=== PATIENT | female | born 1960 | race Caucasian/White ===

== ENCOUNTER 2019-01-22 20:37 | Observation (INO) | payer MEDICAID ==
[~2019-01-22] VITALS: Ht 147.3 cm; Wt 88.2 kg
[2019-01-22 21:04] VITALS: Ht 147.3 cm; Wt 88.2 kg
[2019-01-22] MEDS ORDERED: NITROGLYCERIN 2% 1 GM OINT PKT TD STA (21:41)
[2019-01-22] MEDS ORDERED: ASPIRIN 81 MG TAB PO STA (21:41)
[2019-01-22] MEDS ORDERED: NITROGLYCERIN (SL) 0.4 MG TAB SL PRN (22:00)
--- NOTE | 2019-01-22 23:28 | ERD ---
ER Documentation Chief Complaint Chief Complaint C/O LT SIDED CP W/ LT ARM NUMBNESS SINCE YESTERDAY HPI Patient is a 58-year-old female with no medical problems who presents with chest pain. She has had pain for the past 2 weeks. Today the pain was worse. It is left-sided. It comes and goes. It lasts about 1 hour at a time. The patient has had no treatment as of yet. Upon review of old medical records this is the patient's first visit to the emergency department. She does not currently have a primary doctor. ROS All systems reviewed and are negative except as per history of present illness. Medications Home Meds No Active Prescriptions or Reported Meds Allergies Allergies: Coded Allergies: No Known Allergy (Unverified , 01/22/19) PMhx/Soc Medical and Surgical Hx: pt denies Medical Hx, pt denies Surgical Hx History of Surgery: No Anesthesia Reaction: No Hx Neurological Disorder: No Hx Respiratory Disorders: No Hx Cardiac Disorders: No Hx Psychiatric Problems: No Hx Miscellaneous Medical Probl: No Hx Alcohol Use: No Hx Substance Use: No Hx Tobacco Use: No Smoking Status: Never smoker FmHx Family History: No coronary disease Physical Exam Vitals Vital Signs Date Temp Pulse Resp B/P (MAP) Pulse Ox O2 O2 Flow FiO2 Time Delivery Rate 01/22/19 90 17 140/77 99 Room Air 21:40 (98) 01/22/19 98.7 88 19 147/68 100 21:04 (94) Physical Exam Const: No acute distress Head: Atraumatic Eyes: Normal Conjunctiva ENT: Normal External Ears, Nose and Mouth. Neck: Full range of motion. No meningismus. Resp: Clear to auscultation bilaterally Cardio: Regular rate and rhythm, no murmurs Abd: Soft, non tender, non distended. Normal bowel sounds Skin: No petechiae or rashes Back: No midline or flank tenderness Ext: No cyanosis, or edema Neur: Awake and alert Psych: Normal Mood and Affect Result Diagram: 01/22/19215001/22/192150 Results 24 hrs Laboratory Tests Test 01/22/19 21:51 White Blood Count 8.7 10^3/ul Red Blood Count 5.36 10^6/ul Hemoglobin 14.8 g/dl Hematocrit 46.2 % Mean Corpuscular Volume 86.2 fl Mean Corpuscular Hemoglobin 27.6 pg Mean Corpuscular Hemoglobin Concent 32.0 g/dl Red Cell Distribution Width 13.4 % Platelet Count 204 10^3/UL Mean Platelet Volume 11.6 fl Immature Granulocytes % 0.300 % Neutrophils % 55.4 % Lymphocytes % 37.9 % Monocytes % 5.7 % Eosinophils % 0.1 % Basophils % 0.6 % Nucleated Red Blood Cells % 0.0 /100WBC Immature Granulocytes # 0.030 10^3/ul Neutrophils # 4.8 10^3/ul Lymphocytes # 3.3 10^3/ul Monocytes # 0.5 10^3/ul Eosinophils # 0.0 10^3/ul Basophils # 0.1 10^3/ul Nucleated Red Blood Cells # 0.0 10^3/ul Sodium Level 142 mmol/L Potassium Level 4.1 mmol/L Chloride Level 104 mmol/L Carbon Dioxide Level 28 mmol/L Anion Gap 10 Blood Urea Nitrogen 14 mg/dl Creatinine 0.53 mg/dl Est Glomerular Filtrat Rate mL/min > 60 mL/min Glucose Level 136 mg/dl Calcium Level 10.3 mg/dl Troponin I < 0.012 ng/ml Current Medications Medications Dose Sig/Juan David Start Time Status Last (Trade) Ordered Route PRN Stop Time Admin Dose Reason Admin Aspirin 162 mg ONCE STAT 01/22/19 DC 01/22/19 (Aspirin) PO 21:41 21:56 01/22/19 21:42 1 inch ONCE STAT 01/22/19 DC 01/22/19 Nitroglycerin TD 21:41 21:56 01/22/19 21:42 (Nitroglyceri n 2% Oint) 1 tab Q5M UP TO 3 01/22/19 01/22/19 Nitroglycerin DOSES PRN 22:00 21:56 SL .CHEST (Nitroglyceri PAIN n (Sl Tab) 0.4 Mg) Ondansetron 4 mg ER BRIDGE 01/22/19 HCl (Zofran PRN IV 23:30 Inj) NAUSEA/VOMITI 01/23/19 23:29 NG 650 mg ER BRIDGE 01/22/19 Acetaminophen PRN PO 23:30 (Tylenol .MILD PAIN 01/23/19 23:29 Tab) 1-3 OR TEMP Procedures/MDM EKG #1 read by me: Rate/Rhythm: Regular rate and rhythm at a normal rate Intervals: Normal Impression: No evidence of ischemia or arrhythmia EKG #2 read by me: Rate/Rhythm: Regular rate and rhythm at a normal rate Intervals: Normal Impression: No evidence of ischemia or arrhythmia Chest X-ray 1V Interpreted by me: Soft Tissue: No acute abnormalities Bones: No acute abnormalities Mediastinum/Cardiac Silhouette/Lungs: No acute abnormalities Patient is a 58-year-old female who presents with chest pain. I am concerned for potential acute coronary syndrome. I doubt pneumonia, pneumothorax, pulmonary embolism, or aortic dissection. The patient will be admitted to the care of Dr. Ariza to the panel team and the patient was given aspirin and nitroglycerin. She will be admitted to a telemetry bed. Initial troponin is negative. Departure Diagnosis: Primary Impression: Chest pain Chest pain type: unspecified Qualified Codes: R07.9 - Chest pain, unspecified Condition: DEN Angulo MD Jan 22, 2019 23:28
[2019-01-22] MEDS ORDERED: ONDANSETRON 4 MG INJ IV PRN (23:30)
[2019-01-22] MEDS ORDERED: ACETAMINOPHEN 325 MG TAB PO PRN (23:30)
[2019-01-23] VITALS (13 sets, daily range): BP systolic 108–129; BP diastolic 59–74; PULSE 56–88; RESP 16–22
[2019-01-23] MEDS ORDERED: ACETAMINOPHEN 325 MG TAB PO PRN (00:30)
[2019-01-23] MEDS ORDERED: DOCUSATE SODIUM 100 MG CAP PO PRN (00:30)
[2019-01-23] MEDS ORDERED: BISACODYL (EC) 5 MG TAB PO PRN (00:30)
[2019-01-23] MEDS ORDERED: NACL 0.9% 3 ML SYG IV SCH (00:30)
[2019-01-23] MEDS ORDERED: morphine 2 MG INJ IV PRN (00:30)
[2019-01-23] MEDS ORDERED: ONDANSETRON 4 MG INJ IV PRN (00:30)
[2019-01-23] MEDS ORDERED: NITROGLYCERIN (SL) 0.4 MG TAB SL PRN (00:30)
--- NOTE | 2019-01-23 04:34 | HP ---
Date/Time of Note Date/Time of Note DATE: 01/23/19 TIME: 04:30 Assessment/Plan VTE Prophylaxis SCD applied (from Nsg): Yes Pharmacological prophylaxis: NA/contraindicated Pharm contraindication: low risk/ambulating Lines/Catheters IV Catheter Type (from Nrsg): Saline Lock Urinary Cath still in place: No Assessment/Plan Hospital Course This is a 58-year-old female being admitted to the telemetry floor for observation for: #1 chest pain: Rule out ACS versus anginal equivalent: Patient does report symptoms for the last 2 weeks that occur at rest and on exertion. She does have a history of hyperlipidemia and morbid obesity. Will trend cardiac enzymes x3, the first that was negative. Will consult cardiology Dr. Dejesus for possible stress test. PRN nitro/morphine, will check hemoglobin A 1C, lipid panel, TSH #2 morbid obesity: We will check hemoglobin A 1C, lipid panel, TSH, encourage diet and lifestyle modification #3 hyperlipidemia: We will check lipid panel #4 DVT GI prophylaxis: SCDs, no GI prophylaxis indicated Further treatment strategy will be implemented as per the clinical course Result Diagram: 01/23/19 0347 01/22/19 2151 Results 24hrs Laboratory Tests Test 01/22/19 21:51 01/22/19 23:45 01/23/19 03:47 White Blood Count 8.7 7.8 Red Blood Count 5.36 4.73 Hemoglobin 14.8 13.2 Hematocrit 46.2 40.8 Mean Corpuscular Volume 86.2 86.3 Mean Corpuscular Hemoglobin 27.6 L 27.9 L Mean Corpuscular Hemoglobin Concent 32.0 32.4 Red Cell Distribution Width 13.4 13.3 Platelet Count 204 182 Mean Platelet Volume 11.6 H 12.2 H Immature Granulocytes % 0.300 0.100 Neutrophils % 55.4 55.1 Lymphocytes % 37.9 37.7 Monocytes % 5.7 6.2 Eosinophils % 0.1 0.3 Basophils % 0.6 0.6 Nucleated Red Blood Cells % 0.0 0.0 Immature Granulocytes # 0.030 0.010 Neutrophils # 4.8 4.3 Lymphocytes # 3.3 H 2.9 Monocytes # 0.5 0.5 Eosinophils # 0.0 0.0 Basophils # 0.1 0.1 Nucleated Red Blood Cells # 0.0 0.0 Sodium Level 142 Potassium Level 4.1 Chloride Level 104 Carbon Dioxide Level 28 Anion Gap 10 Blood Urea Nitrogen 14 Creatinine 0.53 Est Glomerular Filtrat Rate mL/min > 60 Glucose Level 136 Calcium Level 10.3 H Troponin I < 0.012 Pending Lactic Acid Level 0.9 Hemoglobin A1c 5.6 Creatine Kinase 64 Creatine Kinase Index Pending Creatinine Kinase MB (Mass) Pending HPI/ROS Admit Date/Time Admit Date/Time Jan 22, 2019 at 23:23 Hx of Present Illness Chief complaint: Chest pain Patient is a 58-year-old female with no medical problems who presents with chest pain. She has had pain for the past 2 weeks that has been intermittent. Today the pain was worse. It is left-sided. It comes and goes. It lasts about 1 hour at a time. She reports that with the pain she is also complains of nausea. She states that the pain over the last 2 weeks has occurred while at rest and with walking and has shortness of breath with it.She denies any lower extremity swelling or diaphoresis. Allergies: NKDA Medications: None ROS Const: As per HPI Eyes : No pain discharge or redness or change in visual acuity ENT: No pain, sore throat, congestion, congestion, dysphagia or discharge Respiratory: No shortness of breath, cough, sputum, wheezing, or pleuritic pain Cardiovascular: As per HPI GI : no change in appetite, abdominal pain, nausea, vomiting, diarrhea, constipation, or change in the color his stool Genitourinary: No dysuria, hematuria, flank pain , discharge or CVA tenderness Musculoskeletal: No joint pain, back pain, neck pain, restricted range of motion in neck or joints Skin: No rash, bruising or hives Neuro: No headache, dizziness, syncope, seizure, focal weakness Endocrine: No polyuria, polydipsia, temperature intolerance Psych: No hallucination, depression, anxiety or suicidal ideation PMH/Family/Social Past Medical History Hyperlipidemia Medications Current Medications Nitroglycerin (Nitroglycerin (Sl Tab) 0.4 Mg) 1 tab Q5M UP TO 3 DOSES PRN SL .CHEST PAIN Last administered on 01/22/19at 21:56; Admin Dose 1 TAB; Start 01/22/19 at 22:00 Ondansetron HCl (Zofran Inj) 4 mg ER BRIDGE PRN IV NAUSEA/VOMITING; Start 01/22/19 at 23:30; Stop 01/23/19 at 23:29 Acetaminophen (Tylenol Tab) 650 mg ER BRIDGE PRN PO .MILD PAIN 1-3 OR TEMP; Start 01/22/19 at 23:30; Stop 01/23/19 at 23:29 IV Flush (NS 3 ml) 3 ml PER PROTOCOL IV ; Start 01/23/19 at 00:30 Ondansetron HCl (Zofran Inj) 4 mg Q6H PRN IV NAUSEA/VOMITING; Start 01/23/19 at 00:30 Aspirin (Aspirin) 81 mg DAILY PO ; Start 01/23/19 at 09:00 Nitroglycerin (Nitroglycerin (Sl Tab) 0.4 Mg) 1 tab Q5M PRN SL .CHEST PAIN; Start 01/23/19 at 00:30 Acetaminophen (Tylenol Tab) 650 mg Q6H PRN PO .PAIN 1-3 OR TEMP Last administered on 01/23/19at 04:09; Admin Dose 650 MG; Start 01/23/19 at 00:30 Morphine Sulfate (morphine) 2 mg Q4H PRN IV .PAIN 7-10; Start 01/23/19 at 00:30 Docusate Sodium (Colace) 100 mg Q12H PRN PO .CONSTIPATION; Start 01/23/19 at 00:30 Bisacodyl (Dulcolax) 5 mg DAILY PRN PO .CONSTIPATION; Start 01/23/19 at 00:30 Coded Allergies: No Known Allergy (Unverified , 01/22/19) Past Surgical History x1 Family History Significant Family History: no pertinent family hx Social History Alcohol Use: none Smoking Status: Former smoker Drug Use: none Exam/Review of Systems Vital Signs Vitals Vital Signs Date Temp Pulse Resp B/P (MAP) Pulse Ox O2 O2 Flow FiO2 Time Delivery Rate 01/23/19 88 04:00 01/23/19 98.4 16 116/61 96 Room Air 03:49 (79) Exam Exam General: Patient is a pleasant female currently lying in bed in no acute distress. HEENT: Atraumatic, normocephalic. The pupils are equal, round and reactive. Extraocular motor are intact Neck: Supple with full range of motion. No rigidity or meningismus Chest: Nontender Lungs: Clear to auscultation bilaterally no crackles rales or wheezing Heart: Normal S1-S2, Regular rhythm and rate. Abdomen: Morbidly obese, soft , nontender, nondistended , bowel sounds are present. No guarding no rebound tenderness , No masses or organomegaly. No costovertebral temporal angle mass Extremities: Normal to inspection, no edema no cyanosis Neurologic: Normal mental status, speech normal, cranial nerves II through XII are intact, motor and sensory are intact, no focal weakness Additional Comments EKG Rate/Rhythm: Regular rate and rhythm at a normal rate Intervals: Normal Impression: No evidence of ischemia or arrhythmia PROCEDURE: DX Chest 1 View CLINICAL INDICATION: Chest pain. TECHNIQUE: AP Portable chest. COMPARISON: None FINDINGS: Normal cardiac and mediastinal configuration. Aortic calcified plaque absent. No CHF or hilar enlargement. Lungs are clear. IMPRESSION: No acute disease. RPTAT: HLRS Physician Amish Date Time Electronically viewed and signed by Physician Amish on 01/23/2019 00:32 RS/ CC: DEN DURAND MD [id number] ARNOLDO FARNSWORTH Jan 23, 2019 04:34
[2019-01-23] MEDS: ASPIRIN 81 MG TAB PO SCH (08:10)
--- NOTE | 2019-01-23 10:28 | PN ---
Date/Time of Note Date/Time of Note DATE: 01/23/19 TIME: 10:28 Assessment/Plan VTE Prophylaxis SCD applied (from Nsg): Yes Pharmacological prophylaxis: NA/contraindicated Pharm contraindication: low risk/ambulating Lines/Catheters IV Catheter Type (from Nrsg): Saline Lock Urinary Cath still in place: No Assessment/Plan Hospital Course SUBJECTIVE: OBJECTIVE: Vital signs-see below PHYSICAL EXAM: Constitutional: Obese female, not in acute distress. Psych: nl mood/affect, no complaints Head: atraumatic, normocephalic Eyes: nl conjunctiva, nl sclera ENMT: mucosa pink and moist, nl external ears & nose Neck: non-tender, supple Respiratory: clear to auscultation, normal air movement Cardiovascular: nl pulses, regular rate and rhythm Gastrointestinal: non-tender, soft, bowel sounds active in all 4 quadrants. Musculoskeletal/extremities: nl extremities to inspection, motor strength equal bilaterally, no focal deficit. Normal pulses,no cyanosis, no edema. Neurological: Alert oriented 3,nl speech, nl strength Skin: nl turgor ASSESSMENT/PLAN: 58-year-old obese female with no significant past medical history, admitted with exertional chest pain. 1. Exertional chest pain, rule out ACS -Troponin x2 sets, EKG negative for acute cardiac ischemia. However, patient symptoms are concerning as such she would benefit from inpatient cardiology consult and most likely a stress test. -Continue aspirin 2. Dyslipidemia -We will start patient on statin. 3. Obesity with BMI 40.6 -Weight reduction advised. DVT prophylaxis: SCDs/ambulation PUD prophylaxis: Not indicated CODE STATUS: Full code Diet: N.p.o. for possible stress test. Disposition: Continue current management. Follow-up cardiology recommendations. Patient was seen in collaboration with Dr. Reddy Result Diagram: 01/23/1934601/23/19346 Results 24hrs Laboratory Tests Test 01/22/19 21:51 01/22/19 23:45 01/23/19 03:47 White Blood Count 8.7 7.8 Red Blood Count 5.36 4.73 Hemoglobin 14.8 13.2 Hematocrit 46.2 40.8 Mean Corpuscular Volume 86.2 86.3 Mean Corpuscular Hemoglobin 27.6 L 27.9 L Mean Corpuscular Hemoglobin Concent 32.0 32.4 Red Cell Distribution Width 13.4 13.3 Platelet Count 204 182 Mean Platelet Volume 11.6 H 12.2 H Immature Granulocytes % 0.300 0.100 Neutrophils % 55.4 55.1 Lymphocytes % 37.9 37.7 Monocytes % 5.7 6.2 Eosinophils % 0.1 0.3 Basophils % 0.6 0.6 Nucleated Red Blood Cells % 0.0 0.0 Immature Granulocytes # 0.030 0.010 Neutrophils # 4.8 4.3 Lymphocytes # 3.3 H 2.9 Monocytes # 0.5 0.5 Eosinophils # 0.0 0.0 Basophils # 0.1 0.1 Nucleated Red Blood Cells # 0.0 0.0 Sodium Level 142 144 Potassium Level 4.1 3.9 Chloride Level 104 104 Carbon Dioxide Level 28 27 Anion Gap 10 13 Blood Urea Nitrogen 14 14 Creatinine 0.53 0.49 Est Glomerular Filtrat Rate mL/min > 60 > 60 Glucose Level 136 128 Calcium Level 10.3 H 9.7 Troponin I < 0.012 < 0.012 Lactic Acid Level 0.9 Hemoglobin A1c 5.6 Magnesium Level 2.5 Total Bilirubin 0.3 Direct Bilirubin 0.00 Indirect Bilirubin 0.3 Aspartate Amino Transf (AST/SGOT) 27 Alanine Aminotransferase (ALT/SGPT) 23 Alkaline Phosphatase 87 Creatine Kinase 64 Creatine Kinase Index 0.3 Creatinine Kinase MB (Mass) < 0.22 Total Protein 7.0 Albumin 4.1 Globulin 2.90 Albumin/Globulin Ratio 1.41 Triglycerides Level 108 Cholesterol Level 216 H LDL Cholesterol, Calculated 147 HDL Cholesterol 47 Cholesterol/HDL Ratio 4.5 Thyroid Stimulating Hormone (TSH) 2.650 Exam/Review of Systems Exam Vitals Vital Signs Date Temp Pulse Resp B/P (MAP) Pulse Ox O2 O2 Flow FiO2 Time Delivery Rate 01/23/19 78 08:07 01/23/19 97.6 22 108/59 96 Nasal 07:16 (75) Cannula Intake and Output 01/22/19 01/22/19 01/23/19 1515:00 23:00 07:00 IntakeIntake Total 500 ml BalanceBalance 500 ml Results Results 24hrs Laboratory Tests Test 01/22/19 21:51 01/22/19 23:45 01/23/19 03:47 White Blood Count 8.7 7.8 Red Blood Count 5.36 4.73 Hemoglobin 14.8 13.2 Hematocrit 46.2 40.8 Mean Corpuscular Volume 86.2 86.3 Mean Corpuscular Hemoglobin 27.6 L 27.9 L Mean Corpuscular Hemoglobin Concent 32.0 32.4 Red Cell Distribution Width 13.4 13.3 Platelet Count 204 182 Mean Platelet Volume 11.6 H 12.2 H Immature Granulocytes % 0.300 0.100 Neutrophils % 55.4 55.1 Lymphocytes % 37.9 37.7 Monocytes % 5.7 6.2 Eosinophils % 0.1 0.3 Basophils % 0.6 0.6 Nucleated Red Blood Cells % 0.0 0.0 Immature Granulocytes # 0.030 0.010 Neutrophils # 4.8 4.3 Lymphocytes # 3.3 H 2.9 Monocytes # 0.5 0.5 Eosinophils # 0.0 0.0 Basophils # 0.1 0.1 Nucleated Red Blood Cells # 0.0 0.0 Sodium Level 142 144 Potassium Level 4.1 3.9 Chloride Level 104 104 Carbon Dioxide Level 28 27 Anion Gap 10 13 Blood Urea Nitrogen 14 14 Creatinine 0.53 0.49 Est Glomerular Filtrat Rate mL/min > 60 > 60 Glucose Level 136 128 Calcium Level 10.3 H 9.7 Troponin I < 0.012 < 0.012 Lactic Acid Level 0.9 Hemoglobin A1c 5.6 Magnesium Level 2.5 Total Bilirubin 0.3 Direct Bilirubin 0.00 Indirect Bilirubin 0.3 Aspartate Amino Transf (AST/SGOT) 27 Alanine Aminotransferase (ALT/SGPT) 23 Alkaline Phosphatase 87 Creatine Kinase 64 Creatine Kinase Index 0.3 Creatinine Kinase MB (Mass) < 0.22 Total Protein 7.0 Albumin 4.1 Globulin 2.90 Albumin/Globulin Ratio 1.41 Triglycerides Level 108 Cholesterol Level 216 H LDL Cholesterol, Calculated 147 HDL Cholesterol 47 Cholesterol/HDL Ratio 4.5 Thyroid Stimulating Hormone (TSH) 2.650 Medications Medication Current Medications Nitroglycerin (Nitroglycerin (Sl Tab) 0.4 Mg) 1 tab Q5M UP TO 3 DOSES PRN SL .CHEST PAIN Last administered on 01/22/19at 21:56; Admin Dose 1 TAB; Start 01/22/19 at 22:00 Ondansetron HCl (Zofran Inj) 4 mg ER BRIDGE PRN IV NAUSEA/VOMITING; Start 01/22/19 at 23:30; Stop 01/23/19 at 23:29 Acetaminophen (Tylenol Tab) 650 mg ER BRIDGE PRN PO .MILD PAIN 1-3 OR TEMP; Start 01/22/19 at 23:30; Stop 01/23/19 at 23:29 IV Flush (NS 3 ml) 3 ml PER PROTOCOL IV ; Start 01/23/19 at 00:30 Ondansetron HCl (Zofran Inj) 4 mg Q6H PRN IV NAUSEA/VOMITING; Start 01/23/19 at 00:30 Aspirin (Aspirin) 81 mg DAILY PO Last administered on 01/23/19at 08:10; Admin Dose 81 MG; Start 01/23/19 at 09:00 Nitroglycerin (Nitroglycerin (Sl Tab) 0.4 Mg) 1 tab Q5M PRN SL .CHEST PAIN; Start 01/23/19 at 00:30 Acetaminophen (Tylenol Tab) 650 mg Q6H PRN PO .PAIN 1-3 OR TEMP Last administered on 01/23/19at 04:09; Admin Dose 650 MG; Start 01/23/19 at 00:30 Morphine Sulfate (morphine) 2 mg Q4H PRN IV .PAIN 7-10; Start 01/23/19 at 00:30 Docusate Sodium (Colace) 100 mg Q12H PRN PO .CONSTIPATION; Start 01/23/19 at 00:30 Bisacodyl (Dulcolax) 5 mg DAILY PRN PO .CONSTIPATION; Start 01/23/19 at 00:30 Atorvastatin Calcium (Lipitor) 10 mg HS PO ; Start 01/23/19 at 21:00 LUIS HOLLOWAY NP Jan 23, 2019 10:28
--- NOTE | 2019-01-23 17:08 | RADRPT ---
Echocardiogram Report Patient Name: Bari LI ID: [id number] : 1960 (58y 2m)Study Date: 01/23/2019 8:10:50 AM Gender: FAccession #: [id number] Tech: Patricia Dailey CIERA Location: [facility] Ref.Physician: ARNOLDO FARNSWORTH Height(Cm): BSA: Weight(Kg): Quality: AdequateAccount #: Procedures: Echocardiographic Report: Transthoracic echocardiogram with complete 2D, M-Mode, and doppler examination. Indications: Chest Pain. Measurements: 2D/M Mode Doppler Measurement Value Normal Range Measurement Value Normal Range LVIDd 2D 5.0 [ 3.8 - 5.2 ] cm AV Peak Wade 1.3 [ 100.0 - 170.0 ] cm/sec LVIDs 2D 2.4 [ 2.2 - 3.5 ] cm AV Peak PG 6.0 [ 2.0 - 9.0 ] mmHg LVPWd 2D 1.1 [ 0.6 - 0.9 ] cm LVOT Peak Wade 0.9 [ 70.0 - 110.0 ] cm/sec IVSd 2D 0.9 [ 0.6 - 0.9 ] cm LVOT Peak PG 3.0 [ 2.0 - 6.0 ] mmHg AoR Diam 2D 2.4 [ 2.3 - 3.1 ] cm MV E Peak Wade 0.6 [ 60.0 - 130.0 ] cm/sec EDV 2D 120.0 [ 46.0 - 106.0 ] ml MV A Peak Wade 0.7 [ 100.0 - 120.0 ] cm/sec ESV 2D 20.0 [ 14.0 - 42.0 ] ml MV E/A 0.8 [ 0.8 - 1.5 ] ratio EF 2D 83.3 [ 54.0 - 74.0 ] percent MV Decel Time 165 [ 104 - 258 ] msec LA Dimen 2D 3.6 [ 2.7 - 3.8 ] cm Lat E` Wade 0.1 [ 10.0 - 15.0 ] cm/sec Lateral E/E` 6.4 [ 1.0 - 2.0 ] ratio Med E` Wade 0.1 cm/sec MV E/A 0.8 [ 0.8 - 1.5 ] ratio TR Peak Wade 2.7 [ 100.0 - 280.0 ] cm/sec TR Peak PG 28.0 mmHg RVSP 31.0 [ 10.0 - 36.0 ] mmHg RA Pressure 3.0 mmHg Findings: Left Ventricle: Normal left ventricular systolic function. Normal left ventricular cavity size. Mild concentric left ventricular hypertrophy. Ejection fraction is visually estimated at 60 %. Tissue Doppler/Mitral Doppler indices are consistent with impaired relaxation (Stage I diastolic dysfunction). Right Ventricle: Normal right ventricular size. Normal right ventricular systolic function. Left Atrium: The left atrium is normal in size. Right Atrium: The right atrium is normal in size. Mitral Valve: Normal appearance and function of the mitral valve with trace physiologic regurgitation. Aortic Valve: Normal appearance of the aortic valve. No significant aortic stenosis or insufficiency. Tricuspid Valve: Normal appearance of the tricuspid valve. Estimated peak PA systolic pressure 31 mmHg. There is trace tricuspid regurgitation. Pulmonic Valve: Normal pulmonic valve appearance. Pericardium: Normal pericardium with no significant pericardial effusion. Aorta: Normal aortic root. IVC: Normal size and normal respiratory collapse consistent with normal right atrial pressure. Conclusions: Normal left ventricular systolic function. Normal left ventricular cavity size. Mild concentric left ventricular hypertrophy. Ejection fraction is visually estimated at 60 %. Tissue Doppler/Mitral Doppler indices are consistent with impaired relaxation (Stage I diastolic dysfunction). Normal appearance and function of the mitral valve with trace physiologic regurgitation. Normal appearance of the tricuspid valve. Estimated peak PA systolic pressure 31 mmHg. There is trace tricuspid regurgitation. Normal pulmonic valve appearance. Electronically Signed By: Raul Dejesus 2019-01-23 17:06:57 PDT
--- NOTE | 2019-01-23 18:22 | CONS ---
DATE OF ADMISSION: 01/22/2019 DATE OF CONSULTATION: 01/22/2019 TYPE OF CONSULTATION: Cardiology. REASON FOR CONSULTATION: Chest pain, assess for acute coronary syndrome. REQUESTING PHYSICIAN: Sara Holloway NP, from the hospitalist service. HISTORY OF PRESENT ILLNESS: Ms. Wily Howard is a 58-year-old female with history of dyslipidemia, obesity, who presents with complaints of substernal chest pain. The patient states the chest pain was ongoing for approximately 2 weeks and describes it as a stabbing sensation on the left side of her chest without radiation, occurring both at rest and with exertion. Initially upon arrival, temperature of 98.7, blood pressure 147/68, pulse 88, respiratory rate 19, satting 100%. The patient's labs revealed sodium of 142, potassium 4.1, creatinine 0.5, BUN 14. Troponin negative. White blood cell count of 8.7, hemoglobin 14.8, platelet count of 204. The patient underwent a chest x-ray revealing no acute cardiopulmonary. The patient's electrocardiogram reveals normal sinus rhythm, rate of 82, normal axis, normal intervals with anterior T- wave inversion and borderline anteroseptal Q's. The patient was subsequently admitted to the floor and since admit to floor has had negative troponin x3, ruling out acute myocardial infarction. PAST MEDICAL HISTORY: As above in HPI. MEDICATIONS CURRENTLY IN HOSPITAL: 1. Lipitor 20 mg at bedtime. 2. Aspirin 81 mg daily. 3. Sublingual nitroglycerin. 4. Tylenol. 5. Morphine p.r.n. 6. Colace p.r.n. 7. Zofran p.r.n. ALLERGIES: NO KNOWN DRUG ALLERGIES. SOCIAL HISTORY: No current tobacco, EtOH, illicit drugs use. FAMILY HISTORY: No history of sudden cardiac or early CAD. REVIEW OF SYSTEMS: As above in HPI. CONSTITUTIONAL: No fevers, chills. PULMONARY: No current shortness of breath. CARDIOVASCULAR: No current chest pain, but chest pain on admit. GASTROINTESTINAL: No vomiting. GENITOURINARY: No hematuria. MUSCULOSKELETAL: Degenerative joint disease. PSYCHIATRIC: No documented psych history. NEUROLOGIC: No documented history of CVA. ENDOCRINE: No documented diabetes mellitus. PHYSICAL EXAMINATION: VITAL SIGNS: Temperature of 97.8, blood pressure 117/66, pulse 79, respiratory rate 21, satting 96% on room air. GENERAL: The patient is alert, awake, in no acute distress. NECK: JVP is approximately 8 to 9 cm of water. CHEST: Fair air movement throughout. HEART: Regular rate and rhythm. Normal S1, S2, I/ systolic murmur, nondisplaced PMI. ABDOMEN: Positive bowel sounds, soft. EXTREMITIES: No significant pitting edema, 1+ pulses bilateral posterior tibial. LABORATORY DATA: Most recently from today, sodium 144, potassium 3.9, creatinine of 0.49, BUN 14. White blood cell count 7.8, hemoglobin 13.2, platelet count 182. IMAGING STUDIES: As above in HPI with chest x-ray revealing no acute cardiopulmonary abnormalities. ELECTROCARDIOGRAM: As above in HPI with no repeat EKGs this time. IMPRESSION: 1. Chest pain, assess for acute coronary syndrome with negative troponins x3 and somewhat atypical symptomatology for cardiac etiology. 2. Abnormal electrocardiogram with anterior T-wave inversion and negative troponins x3. 3. Dyslipidemia with significant elevated LDL. RECOMMENDATIONS: 1. At this time, we would maintain the patient on her aspirin. 2. Would increase the patient's statin dose given significant elevated LDL and improve lipid profile. 3. We will give the patient's sublingual nitroglycerin for recurrent episodes of chest pain. 4. We will follow up patient's 2D echo. 5. The patient's 2D echo reveals no significant abnormalities. The patient continued to be chest pain free and I believe patient will be reasonable for discharge with further outpatient followup and evaluation including outpatient stress testing. If the patient continues to have chest pain, we will consider a stress test as inpatient or if in echo, she was found to have some abnormalities. Thank you for allowing me to take part in the care of this patient. Dictated By: ALIZA STEWART/VENITA Conf#: [id number] DID#: [id number] CC: ARNOLDO FARNSWORTH MD; SARA HOLLOWAY NP;*EvelinaCC* MTDD
[2019-01-23] MEDS ORDERED: ATORVASTATIN 10 MG TAB PO SCH (21:00)
[2019-01-24] VITALS: PULSE 81
[2019-01-24 03:48] VITALS: BP 111/62; PULSE 70; RESP 16
[2019-01-24 04:00] VITALS: PULSE 67
[2019-01-24 07:04] VITALS: BP 121/89; PULSE 74; RESP 18
[2019-01-24 08:01] VITALS: PULSE 78
[2019-01-24] MEDS: ASPIRIN 81 MG TAB PO SCH (08:25)
[2019-01-24] MEDS ORDERED: REGADENOSON 0.4 MG/5 ML SYG ONE (11:47)
[2019-01-24 12:01] VITALS: PULSE 85
--- NOTE | 2019-01-24 12:37 | CONS ---
Assessment/Plan Assessment/Plan Hospital Course (Demo Recall) IMPRESSION: 1. Chest pain, assess for acute coronary syndrome with negative troponins x3 and somewhat atypical symptomatology for cardiac etiology.-neg trop x 3 2. Abnormal electrocardiogram with anterior T-wave inversion and negative troponins x3. 3. Dyslipidemia with significant elevated LDL. Recc: -Tele -Contiue asa -Continue statin -PRN SL NTG -Lexiscan stress today and if negative then ok for d/c Consultation Date/Type/Reason Admit Date/Time Jan 22, 2019 at 23:23 Initial Consult Date 01/23/19 Type of Consult Cardiology Reason for Consultation chest pain Requesting Provider: ARNOLDO FARNSWORTH Date/Time of Note DATE: 01/24/19 TIME: 12:35 Exam/Review of Systems Vital Signs Vitals Vital Signs Date Temp Pulse Resp B/P (MAP) Pulse Ox O2 O2 Flow FiO2 Time Delivery Rate 01/24/19 85 12:01 01/24/19 98.4 18 121/89 96 Room Air 07:04 (100) Intake and Output 01/23/19 01/23/19 01/24/19 1515:00 23:00 07:00 IntakeIntake Total 240 ml BalanceBalance 240 ml Exam Exam Review of Systems: CONSTITUTIONAL: No fevers, chills. PULMONARY: No sob CARDIOVASCULAR: No chest pain/palpitations GASTROINTESTINAL: No nausea/vomiting. GENITOURINARY: No hematuria/dysuria. MUSCULOSKELETAL: No myagias/arthalgias. PSYCHIATRIC: The patient denies depression. NEUROLOGIC: No weakness Constitutional: alert Head: normocephalic ENMT: mucosa pink and moist Neck: supple, jvd (9 cm water) Respiratory: diminished breath sounds Cardiovascular: regular rate and rhythm Gastrointestinal: soft Musculoskeletal: muscle tone (normal) Extremities: edema (none) Neurological: other (No focal deficits) Labs Result Diagram: 01/24/19 0659 01/24/19 0659 Results 24hrs Laboratory Tests Test 01/24/19 06:59 White Blood Count 7.2 Red Blood Count 5.04 Hemoglobin 14.0 Hematocrit 43.7 Mean Corpuscular Volume 86.7 Mean Corpuscular Hemoglobin 27.8 L Mean Corpuscular Hemoglobin Concent 32.0 Red Cell Distribution Width 13.7 Platelet Count 192 Mean Platelet Volume 12.3 H Immature Granulocytes % 0.100 Neutrophils % 41.5 Lymphocytes % 49.1 Monocytes % 8.3 Eosinophils % 0.4 Basophils % 0.6 Nucleated Red Blood Cells % 0.0 Immature Granulocytes # 0.010 Neutrophils # 3.0 Lymphocytes # 3.5 H Monocytes # 0.6 Eosinophils # 0.0 Basophils # 0.0 Nucleated Red Blood Cells # 0.0 Sodium Level 144 Potassium Level 4.0 Chloride Level 108 Carbon Dioxide Level 27 Anion Gap 9 Blood Urea Nitrogen 16 Creatinine 0.58 Est Glomerular Filtrat Rate mL/min > 60 Glucose Level 87 # Calcium Level 9.5 Total Bilirubin 0.4 Direct Bilirubin 0.00 Indirect Bilirubin 0.4 Aspartate Amino Transf (AST/SGOT) 33 Alanine Aminotransferase (ALT/SGPT) 21 Alkaline Phosphatase 97 Total Protein 7.6 Albumin 4.3 Globulin 3.30 H Albumin/Globulin Ratio 1.30 Medications Medications Current Medications IV Flush (NS 3 ml) 3 ml PER PROTOCOL IV ; Start 01/23/19 at 00:30 Ondansetron HCl (Zofran Inj) 4 mg Q6H PRN IV NAUSEA/VOMITING; Start 01/23/19 at 00:30 Aspirin (Aspirin) 81 mg DAILY PO Last administered on 01/24/19at 08:25; Admin Dose 81 MG; Start 01/23/19 at 09:00 Nitroglycerin (Nitroglycerin (Sl Tab) 0.4 Mg) 1 tab Q5M PRN SL .CHEST PAIN; Start 01/23/19 at 00:30 Acetaminophen (Tylenol Tab) 650 mg Q6H PRN PO .PAIN 1-3 OR TEMP Last administered on 01/23/19at 04:09; Admin Dose 650 MG; Start 01/23/19 at 00:30 Morphine Sulfate (morphine) 2 mg Q4H PRN IV .PAIN 7-10; Start 01/23/19 at 00:30 Docusate Sodium (Colace) 100 mg Q12H PRN PO .CONSTIPATION; Start 01/23/19 at 00:30 Bisacodyl (Dulcolax) 5 mg DAILY PRN PO .CONSTIPATION; Start 01/23/19 at 00:30 Atorvastatin Calcium (Lipitor) 40 mg HS PO ; Start 01/24/19 at 21:00 ALIZA SAEZ 23, 2019 12:37
--- NOTE | 2019-01-24 14:08 | CARRPT ---
DATE OF PROCEDURE: 01/24/2019 Lexiscan Cardiolite stress test, electrocardiogram portion. INDICATION: Chest pain, assess for ischemia. BASELINE VITAL SIGNS AND ELECTROCARDIOGRAM: Pulse 70, blood pressure 144/78. Electrocardiogram reveals sinus rhythm, rate of 78 with a normal axis and nonspecific ST-T abnormalities. PROCEDURE: The patient underwent standard Lexiscan infusion protocol over 10 seconds followed by radiotracer. The patient's test was stopped at completion of protocol. Maximal blood pressure during the test 175/87. Maximum heart rate during the test 130. ELECTROCARDIOGRAM FINDINGS: No significant ST or T-wave changes from baseline abnormalities. No documented PVCs. SYMPTOMS: The patient had no complaints of chest pain or shortness breath during stress testing. IMPRESSION: 1. The patient did not develop any new ST or T-wave changes from baseline abnormalities during stress testing. 2. No documented premature ventricular contractions. 3. Report of nuclear image to follow in separate dictation. Dictated By: ALIZA STEWART/VENITA Conf#: [id number] DID#: [id number] CC: ARNOLDO FARNSWORTH MD;*End* MTDD
--- NOTE | 2019-01-24 14:17 | PDOCDIS ---
Discharge Instructions DIAGNOSIS Discharge Diagnosis Noncardiac chest pain; obesity; lipidemia; grade 1 diastolic dysfunction CONDITION [id number] Patient Condition: [id number] Good HOME CARE INSTRUCTIONS: Magen Diet Instructions: [id number] Reduced Calorie ACTIVITY: [id number] Activity Restrictions: [id number] No Restrictions FOLLOW UP/APPOINTMENTS Follow-up Plan Follow-up with primary care physician in the next 3 weeks for ongoing management of lipid disturbance NAIDA NAJERA MD Jan 24, 2019 14:17
--- NOTE | 2019-01-24 14:17 | DS ---
Date/Time of Note Date/Time of Note DATE: 01/24/19 TIME: 14:13 Discharge Summary Admission/Discharge Info Admit Date/Time Jan 22, 2019 at 23:23 Discharge Date/Time January 24 2019 Discharge Diagnosis Noncardiac chest pain; obesity; lipidemia; grade 1 diastolic dysfunction Patient Condition: Good Consults Cardiology-Dr. Dejesus Procedures Echocardiogram; Conclusions: Normal left ventricular systolic function. Normal left ventricular cavity size. Mild concentric left ventricular hypertrophy. Ejection fraction is visually estimated at 60 %. Tissue Doppler/Mitral Doppler indices are consistent with impaired relaxation (Stage I diastolic dysfunction). Normal appearance and function of the mitral valve with trace physiologic regurgitation. Normal appearance of the tricuspid valve. Estimated peak PA systolic pressure 31 mmHg. There is trace tricuspid regurgitation. Normal pulmonic valve appearance. Lexiscan stress test Hx of Present Illness HPI Patient is a 58-year-old female with no medical problems who presents with chest pain. She has had pain for the past 2 weeks. Today the pain was worse. It is left-sided. It comes and goes. It lasts about 1 hour at a time. The patient has had no treatment as of yet. Upon review of old medical records this is the patient's first visit to the emergency department. She does not currently have a primary doctor. Hx of Present Illness Chief complaint: Chest pain Patient is a 58-year-old female with no medical problems who presents with chest pain. She has had pain for the past 2 weeks that has been intermittent. Today the pain was worse. It is left-sided. It comes and goes. It lasts about 1 hour at a time. She reports that with the pain she is also complains of nausea. She states that the pain over the last 2 weeks has occurred while at rest and with walking and has shortness of breath with it.She denies any lower extremity swelling or diaphoresis. HISTORY OF PRESENT ILLNESS: Ms. Wily Howard is a 58-year-old female with history of dyslipidemia, obesity, who presents with complaints of substernal chest pain. The patient states the chest pain was ongoing for approximately 2 weeks and describes it as a stabbing sensation on the left side of her chest without radiation, occurring both at rest and with exertion. Initially upon arrival, temperature of 98.7, blood pressure 147/68, pulse 88, respiratory rate 19, satting 100%. The patient's labs revealed sodium of 142, potassium 4.1, creatinine 0.5, BUN 14. Troponin negative. White blood cell count of 8.7, hemoglobin 14.8, platelet count of 204. The patient underwent a chest x-ray revealing no acute cardiopulmonary. The patient's electrocardiogram reveals normal sinus rhythm, rate of 82, normal axis, normal intervals with anterior T- wave inversion and borderline anteroseptal Q's. The patient was subsequently admitted to the floor and since admit to floor has had negative troponin x3, rul ing out acute myocardial infarction. Hospital Course Nicolette 58-year-old female admitted with chest pain. Her cardiac enzymes were negative and echocardiogram was not significantly abnormal although she did have grade 1 diastolic dysfunction. Lexiscan has been completed in the EKG portion is fully normal. Pending at this time where the imagings which will be reported shortly. Assuming those are normal she is stable for discharge. She has no known communicable diseases she is competent for medical decision making Home Meds No Active Prescriptions or Reported Meds Primary Care Provider Care Physician No Primary Time spent on discharge: > 30 minutes Pending Labs Laboratory Tests Test 01/24/19 06:59 White Blood Count 7.2 10^3/ul (4.8-10.8) Red Blood Count 5.04 10^6/ul (4.20-5.40) Hemoglobin 14.0 g/dl (12.0-16.0) Hematocrit 43.7 % (37.0-47.0) Mean Corpuscular Volume 86.7 fl (82.0-101.0) Mean Corpuscular Hemoglobin 27.8 pg (29.0-33.0) Mean Corpuscular Hemoglobin Concent 32.0 g/dl (32.0-37.0) Red Cell Distribution Width 13.7 % (11.5-14.5) Platelet Count 192 10^3/UL (140-415) Mean Platelet Volume 12.3 fl (7.4-10.4) Immature Granulocytes % 0.100 % (0.001-0.429) Neutrophils % 41.5 % (39.0-77.0) Lymphocytes % 49.1 % (15.0-51.0) Monocytes % 8.3 % (0.0-11.0) Eosinophils % 0.4 % (0.0-7.0) Basophils % 0.6 % (0.0-2.0) Nucleated Red Blood Cells % 0.0 /100WBC (0.0-0.0) Immature Granulocytes # 0.010 10^3/ul (0.0-0.031) Neutrophils # 3.0 10^3/ul (1.6-7.5) Lymphocytes # 3.5 10^3/ul (0.8-2.9) Monocytes # 0.6 10^3/ul (0.3-0.9) Eosinophils # 0.0 10^3/ul (0.0-0.5) Basophils # 0.0 10^3/ul (0.0-0.1) Nucleated Red Blood Cells # 0.0 10^3/ul (0.0-0.0) Sodium Level 144 mmol/L (135-144) Potassium Level 4.0 mmol/L (3.5-5.1) Chloride Level 108 mmol/L (97-110) Carbon Dioxide Level 27 mmol/L (21-31) Anion Gap 9 (5-13) Blood Urea Nitrogen 16 mg/dl (7-20) Creatinine 0.58 mg/dl (0.44-1.00) Est Glomerular Filtrat Rate mL/min > 60 mL/min (>60) Glucose Level 87 mg/dl (70-220) Calcium Level 9.5 mg/dl (8.4-10.2) Total Bilirubin 0.4 mg/dl (0.2-1.3) Direct Bilirubin 0.00 mg/dl (0.00-0.20) Indirect Bilirubin 0.4 mg/dl (0-1.1) Aspartate Amino Transf (AST/SGOT) 33 IU/L (15-46) Alanine Aminotransferase (ALT/SGPT) 21 IU/L (13-69) Alkaline Phosphatase 97 IU/L (42-121) Total Protein 7.6 g/dl (6.1-8.1) Albumin 4.3 g/dl (3.3-4.9) Globulin 3.30 g/dl (1.3-3.2) Albumin/Globulin Ratio 1.30 NAIDA NAJERA MD Jan 24, 2019 14:17
[2019-01-24] MEDS ORDERED: ATOR40TA68 PO (14:19)
[2019-01-24] MEDS ORDERED: ATORVASTATIN 40 MG TAB PO SCH (21:00)
--- NOTE | 2019-01-25 16:28 | RADRPT ---
Vent Rate: 74 bpm RR Interval: 0 msec FL Interval: 154 msec QRS Duration: 90 msec QT Interval: 406 msec QTC Interval: 450 msec P-R-T [place]: 30 - 10 - 38 degrees Normal sinus rhythm Nonspecific T wave abnormality Abnormal ECG Electronically Signed By: Santos Ramirez
== END 2019-01-24 15:20 | disposition home or self-care (01) ==
LOC: E/R 20:37 → TEL 23:23
PROVIDERS: ADMIT Family Medicine; ATTEND Family Medicine
DX: R07.89 Other chest pain (principal); E78.5 Hyperlipidemia, unspecified; E66.01 Morbid (severe) obesity due to excess calories; Z68.41 Body mass index [BMI] 40.0-44.9, adult
CPT/HCPCS: 36415; 71045; 78452; 80048; 80053; 80061; 82306; 82550; 82553; 83036; 83605; 83735; 84443; 84484; 85025; 93005; 93017; 93306; A9500; A9505; J2785; Z7500; Z7502; Z7610; G0378